=== PATIENT | female | born 1950 | race Caucasian/White ===

== ENCOUNTER 2018-06-15 18:03 | Emergency (ER) | payer OTHER, MEDICARE ==
[~2018-06-15] VITALS: Ht 165.1 cm; Wt 68.0 kg
[2018-06-15] MEDS ORDERED: CALCIUM 500 +1 EAC5 PO (18:15)
[2018-06-15] MEDS ORDERED: ASPIR 8181 MG PO (18:15)
[2018-06-15] MEDS ORDERED: UNICOMPLEX M TA1 TA1 PO (18:16)
[2018-06-15 18:42] LABS: ABSOLUTE BASOPHILS 0.1 thou/uL (0.0-0.2); ABSOLUTE EOSINOPHILS 0.1 thou/uL (0.0-0.7); ABSOLUTE LYMPHOCYTES 1.8 thou/uL (0.8-5.3); ABSOLUTE MONOCYTES 0.8 thou/uL (0.0-1.2); ABSOLUTE NEUTROPHILS 7.6 thou/uL (1.6-8.1); BASOPHILS 0.5 %; EOSINOPHILS 1.3 %; HEMATOCRIT 37.4 % (37.0-47.0); HEMOGLOBIN 12.5 gm/dL (12.0-15.0); LYMPHOCYTES 17.5 %; MCH 28.6 pg (26.0-34.0); MCHC 33.4 g/dL (28.0-37.0); MCV 85.8 fL (80.0-100.0); MONOCYTES 7.5 %; MPV 9.4 fl. (7.2-11.1); NUCLEATED RBCS 0 /100WBC; PLATELET COUNT* 183 thou/uL (150-400); POLYS 73.2 %; RBC 4.35 mil/uL (4.20-5.00); RDW-CV 14.9 % (10.5-14.5); WBC 10.4 thou/uL (4.0-11.0)
[2018-06-15 18:46] LABS: ANION GAP 9 mmol/L (7-16); BUN 23 mg/dL (7-18); CALCIUM 8.8 mg/dL (8.5-10.1); CHLORIDE 105 mmol/L (98-107); CO2 27 mmol/L (21-32); CREATININE 1.1 mg/dL (0.6-1.3); GLUCOSE 130 mg/dL (70-99); POTASSIUM 3.8 mmol/L (3.5-5.1); SODIUM 141 mmol/L (136-145)
[2018-06-15 18:57] LABS: ALBUMIN 3.5 g/dL (3.4-5.0); ALKALINE PHOSPHATASE 71 U/L (46-116); NT-PRO BRAIN NAT PEPTIDE 98 pg/mL (<300); SGOT 10 U/L (15-37); SGPT 18 U/L (30-65); TOTAL BILIRUBIN 0.3 mg/dL (<0.1-1.0); TOTAL PROTEIN 7.2 g/dL (6.4-8.2); TROPONIN-I LEVEL <0.06 ng/mL (<0.06)
[2018-06-15 21:23] VITALS: BP 145/65
--- NOTE | 2018-06-17 16:56 | EKG ---
[place] [address] ELECTROCARDIOGRAM REPORT Name: ADAM RICHMOND Room: [facility]#: [id number] Admission: 06/15/18 Attend Phys: Discharge: 06/15/18 Date of : 48 Report #: [id number] THIS REPORT FOR: //name// [facility] ED Test Date: 2018-06-15 Test Time: 18:09:45 Pat Name: ADAM RICHMOND Department: Room: Gender: F Sales And Marketing Specialist: : 1950 Requested By: Hossein Pang Order Number: [id number] MD: Fadi Clifford Measurements Intervals [place] Rate: 82 P: 64 [place]: 172 QRS: 7 QRSD: 105 T: 30 QT: 396 QTc: 463 Interpretive Statements Sinus rhythm No previous ECG available for comparison Electronically Signed On 06-17-2018 16:55:57 CDT by Fadi Clifford [email or web address] <ELECTRONICALLY SIGNED> By: Fadi Clifford MD, [facility] 06/17/18 1655 1809 1809 Fadi Clifford MD, FACC /EPI
--- NOTE | 2018-06-17 16:57 | EKG ---
[place] [address] ELECTROCARDIOGRAM REPORT Name: ADAM RICHMOND Room: [facility]#: [id number] Admission: 06/15/18 Attend Phys: Discharge: 06/15/18 Date of : 48 Report #: [id number] THIS REPORT FOR: //name// [facility] ED Test Date: 2018-06-15 Test Time: 20:55:43 Pat Name: ADAM RICHMOND Department: Room: Gender: F Parts Sales Counterperson: Eron BRUNER : 1950 Requested By: Baldo Nicole Order Number: [id number] MD: aFdi Clifford Measurements Intervals [place] Rate: 79 P: 60 TN: 194 QRS: 9 QRSD: 102 T: 15 QT: 398 QTc: 457 Interpretive Statements Sinus rhythm Atrial premature complex Left ventricular hypertrophy, by voltage Baseline wander in lead(s) V4 No previous ECG available for comparison Electronically Signed On 06-17-2018 16:57:25 CDT by Fadi Clifford [email or web address] <ELECTRONICALLY SIGNED> By: Fadi Clifford MD, [facility] 06/17/18 1657 54 54 Fadi Clifford MD, FACC /EPI
== END 2018-06-15 18:53 | disposition still patient (30) ==
LOC: M.ERS 18:03
PROVIDERS: Emergency Medicine
DX: R55 Syncope and collapse (principal); R42 Dizziness and giddiness